=== PATIENT | female | born 1965 | race Caucasian/White ===

== ENCOUNTER 2020-06-16 13:42 | Outpatient (CLI) | payer BC, MEDICARE ==
--- NOTE | 2020-06-23 09:09 | Mammography Report ---
BILATERAL DIGITAL SCREENING MAMMOGRAM 3D/2D: 06/16/2020 CLINICAL: Routine screening. Comparison is made to exams dated: 09/25/2013 mammogram, 06/13/2012 mammogram, and 05/28/2011 mammogram - [facility]. The tissue of both breasts is heterogeneously dense. This may lower the sensitivity of mammography. No significant masses, calcifications, or other findings are seen in either breast. There has been no significant interval change. IMPRESSION: NEGATIVE There is no mammographic evidence of malignancy. A 1 year screening mammogram is recommended. This exam was interpreted at Station ID: [id number]. NOTE: For mammograms, a report in lay terms will be sent to the patient. Approximately 15% of breast malignancies will not be visualized mammographically. In the management of a palpable breast mass, a negative mammogram must not discourage biopsy of a clinically suspicious lesion. Electronically Signed By: Darinel Johnson M.D. [email or web address]:06/23/2020 08:49:32 ACR BI-RADS Category 1: Negative 3341F PARENCHYMAL PATTERN: (D) - The breast(s) demonstrate(s) heterogeneously dense fibroglandular franklin glover. BI-RADS CATEGORY: (1) - 1 RECOMMENDATION: (ANNUAL) - Recommend routine annual screening mammography. [id number] 1 year screening LATERALITY: (B)
== END 2020-06-16 13:43 | disposition home or self-care (01) ==
LOC: DI.N 13:42
PROVIDERS: ATTEND Internal Medicine
DX: Z12.31 Encounter for screening mammogram for malignant neoplasm of breast (principal)

== ENCOUNTER 2021-02-01 11:05 | Outpatient (CLI) | payer BC, MEDICARE ==
--- NOTE | 2021-02-01 16:54 | XRAY Report ---
PROCEDURE: Foot 3 View RT INDICATIONS: R FOOT PX TECHNIQUE: 3 views of the foot were acquired. COMPARISON: None FINDINGS: Bones: No acute fractures or dislocations. No suspicious bony lesions. Degenerative changes of the right great toe metatarsophalangeal joint. Small retrocalcaneal enthesophytes. Soft tissues: No tibiotalar joint effusion. Achilles tendon appears normal. IMPRESSION: Right foot without acute fracture or dislocation. Degenerative changes of the right first metatarsophalangeal joint. Small retrocalcaneal spurring. Reviewed by: Lanre Romero MD on 02/01/2021 4:53 PM PDT Approved by: Lanre Romero MD on 02/01/2021 4:53 PM PDT Station ID: [id number]
== END 2021-02-01 11:06 | disposition home or self-care (01) ==
LOC: DI.N 11:05
PROVIDERS: ATTEND Physician Assistant
DX: M19.071 Primary osteoarthritis, right ankle and foot (principal); M77.31 Calcaneal spur, right foot

== ENCOUNTER 2021-04-28 05:23 | Outpatient (CLI) | payer BC | END 2021-04-28 05:24 | disposition EMS.NT | LOC: EMS 05:23 | DX: R51.9 Headache, unspecified (principal); R11.2 Nausea with vomiting, unspecified; R42 Dizziness and giddiness; M54.2 Cervicalgia ==

== ENCOUNTER 2021-04-28 06:25 | Emergency (ER) | payer BC, MEDICARE ==
[2021-04-28 06:34] VITALS: BP 146/128
--- NOTE | 2021-04-28 07:14 | ED Physician Documentation ---
PD HPI HEADACHE - Stated complaint Stated Complaint: HEADACHE/VOMITING - Chief complaint Chief Complaint: Neuro - History obtained from History obtained from: Patient PD PAST MEDICAL HISTORY - Allergies Allergies/Adverse Reactions: Allergies Allergy/AdvReac Type Severity Reaction Status Date / Time lisinopril Allergy Respiratory Verified 04/28/21 06:34 Sulfa (Sulfonamide Allergy Rash Verified 04/28/21 06:34 Antibiotics) Results - Vitals Vitals: Vital Signs - 24 hr 04/28/21 06:32 Temperature 35.9 C L Heart Rate 82 Respiratory 20 Rate Blood Pressure 146/128 H O2 Saturation 95 Oxygen O2 Source Room air
== END 2021-04-28 07:22 | disposition left against medical advice (07) ==
LOC: ED 06:25
DX: Z53.21 Procedure and treatment not carried out due to patient leaving prior to being seen by health care provider (principal)